=== PATIENT | female | born 1955 | race Caucasian/White ===

== ENCOUNTER 2018-06-18 07:54 | Day surgery (SDC) | payer OTHER ==
[2018-06-18] MEDS ORDERED: Xylocaine-Mpf 2% 5 Ml Vial IJ ONE (07:55)
[2018-06-18] MEDS ORDERED: DIPRIVAN 200 MG/20 ML IV ONE (07:55)
[2018-06-18] MEDS ORDERED: Ketamine HCl 50 MG/ML IV ONE (07:55)
[2018-06-18] MEDS ORDERED: Levofloxacin 500MG/100ML D5W 500 MG/100 ML BAG IV ONE (07:59)
[2018-06-18] MEDS ORDERED: Lactated Ringers 1,000 ML IV ONE ×2 (07:59→09:13)
[2018-06-18] MEDS ORDERED: Levofloxacin 500MG/100ML D5W 500 MG/100 ML BAG IV SCH (08:00)
[2018-06-18] MEDS ORDERED: Lactated Ringers 1,000 ML IV SCH (08:00)
--- NOTE | 2018-06-18 08:49 | HP ---
DATE OF SURGERY: 06/18/2018 PAST MEDICAL HISTORY: The patient is a 63 year-old with some weight loss, left upper forearm pain. She had upper and lower endoscopy with no obvious etiology. She underwent CT guided liver biopsy for infiltrating adenocarcinoma, question of pancreas or biliary origin. She is now in need of Port-A-Cath placement for residential treatment. PAST SURGICAL HISTORY: Cholecystectomy, appendectomy, hysterectomy. She had upper and lower endoscopy in the past. MEDICATIONS: She denied medications on a regular basis. ALLERGIES: PENICILLIN, SULFA. FAMILY HISTORY: Negative in regards to this problem. SOCIAL HISTORY: Half pack per day. Denies alcohol abuse. REVIEW OF SYSTEMS: Twelve systems reviewed per admission assessment. PHYSICAL EXAMINATION: GENERAL: No acute distress. HEENT: Sclerae nonicteric. NECK: No JVD. CHEST: Equal excursion, nonlabored breathing. CVS: Regular rate and rhythm. ABDOMEN: Soft. No peritoneal signs. EXTREMITIES: No significant edema. NEURO: Alert, moving extremities symmetrically. IMPRESSION: Infiltrating adenocarcinoma metastasis in liver, question pancreatic or biliary origin. Needs Port-A-Cath for residential treatment by Dr. Bustillo. Risks and benefits explained in detail including but not limited to bleeding or infection, risk of thrombosis or pneumothorax, risk of port or catheter fracture or failure possibly requiring removal or replacement, risk of port infection possibly requiring removal, risk of arterial injury or major venous tear. General risk of anesthesia, deep venous thrombosis, pulmonary embolism or pneumonia but not limited to. She understands and agrees to the planned procedure and will proceed with Port-A-Cath placement as an outpatient.
[2018-06-18] MEDS ORDERED: Sensorcaine 0.25% 10 ML ONE (09:13)
[2018-06-18] MEDS ORDERED: XYLOCAINE 1% HCL 20 ML MDV ONE ×2 (13:01→13:24)
--- NOTE | 2018-06-18 14:09 | XRAY ---
Indication: PowerPort placement. Intraoperative fluoroscopy was provided for 4 seconds. 3 digital spot images submitted for interpretation demonstrates left-sided Port-A-Cath with the tip projecting over the SVC. Correlate with intraoperative findings/report.
[2018-06-18 15:47] VITALS: O2SAT 97
[2018-06-18 15:53] VITALS: BP 145/84; PULSE 83
--- NOTE | 2018-06-19 08:23 | OP ---
SURGERY DATE/TIME: 06/18/2018 1300 PREOPERATIVE DIAGNOSIS: Infiltrating adenocarcinoma, liver metastases question pancreatic or biliary origin, need for long-term IV access for IV treatments. POSTOPERATIVE DIAGNOSIS: Infiltrating adenocarcinoma, liver metastases question pancreatic or biliary origin, need for long-term IV access for IV treatments. PROCEDURE: Tunnel Port-A-Cath placement with C-arm fluoroscopy with ultrasound-guided interpretation and management left internal jugular vein. SURGEON: Dr. Antoine Morales. POST TENSIONING IRONWORKER HELPER: Rosa Davis, Medical Student III. ANESTHESIA: MAC. ESTIMATED BLOOD LOSS: Minimal. INDICATIONS: As noted above. Risks and benefits explained in detail and not limited to and consent was obtained. DESCRIPTION OF PROCEDURE AND FINDINGS: The patient is taken to the operating room. MAC anesthesia introduced. After official time out and no disagreement with planned procedure, neck and chest prepped and draped in usual sterile fashion in Trendelenburg position. 1% Lidocaine local infiltrated left subclavicular area. 18 gauge cannulation needle inserted on first pass. Good dark nonpulsatile venous return. The flow was sluggish. The guide wire would not pass smoothly. Repositioned the needle slightly were able to pass the guide wire easily. Therefore it went to the right subclavian. Again dark nonpulsatile venous return obtained but inadequate flow to pass the guide wire. It was then elected to go to the jugular approach. Sterile probe gently on the neck. The transduction of easily compressible left internal jugular vein was noted. Under direct visualization with the ultrasound and transduction with the ultrasound, 18 gauge cannulation needle was inserted on first pass. Good dark nonpulsatile venous return obtained. Picture had been taken. Guide wire passed without difficulty and confirmed down the superior vena cava by C-arm fluoroscopy. It was followed by anesthetizing tunnel track and port pocket on the left chest. A transverse incision made inferior subcu. Port pocket created with aid of cautery. With aid of cautery port secured to the chest wall with Prolene suture x2. Catheter tunneled down from cannulation stab wound down to port pocket area. The dilator and break away sheath easily fed down the guide wire. The guide wire removed and dilator removed. Catheter fed down the breakaway sheath. The tip was in the distal superior vena cava on C-arm fluoroscopy. Catheter had been tunneled down through the port pocket where it was snapped on the port with the hub. It aspirated dark, nonpulsatile venous return with ease, flushed with heparinized saline with ease. Catheter tip was in good location distal superior vena cava. Lung silva noted to be up bilaterally. It was felt that no further x-rays were necessary. Port aspirated with ease and flushed with heparinized saline with ease. Good hemostasis is noted. Subcu closed with 3-0 Vicryl. Skin closed with 4-0 Vicryl. Cannulation stab wound closed with 4-0 Vicryl. Steri-Strips and sterile dressing applied. The patient tolerated the procedure well. There were no immediate complications. Findings discussed with the family out in the waiting area. She was transferred to the recovery room in stable condition.
--- NOTE | 2018-06-20 14:35 | XRAY ---
4 seconds fluoroscopy time in surgery for port placement.
== END 2018-06-18 15:40 | disposition home or self-care (01) ==
LOC: SDC 07:54
PROVIDERS: ATTEND Surgery
PROC: 05HN33Z Insertion of Infusion Device into Left Internal Jugular Vein, Percutaneous Approach (ICD-10-PCS; principal; 2018-06-18)
DX: C78.7 Secondary malignant neoplasm of liver and intrahepatic bile duct (principal); C80.1 Malignant (primary) neoplasm, unspecified; Z72.0 Tobacco use
CPT/HCPCS: 71045; 76937; 77001; 94250; C1788; J1642; J1956; J2704